=== PATIENT | male | born 1975 | race Caucasian/White ===

== ENCOUNTER 2017-08-15 19:58 | Emergency (ER) | payer OTHER ==
[~2017-08-15] VITALS: Ht 172.7 cm; Wt 83.9 kg
[2017-08-15 20:29] LABS: ABSOLUTE EOSINOPHILS 0.1 thou/uL (0.0-0.7); ABSOLUTE LYMPHOCYTES 1.9 thou/uL (0.8-5.3); ABSOLUTE MONOCYTES 0.5 thou/uL (0.0-1.2); ABSOLUTE NEUTROPHILS 2.9 thou/uL (1.6-8.1); BASOPHILS 0.4 %; EOSINOPHILS 2.5 %; HEMOGLOBIN 13.7 gm/dL (14.0-18.0); LYMPHOCYTES 34.7 %; MCH 33.9 pg (26.0-34.0); MCHC 34.3 g/dL (28.0-37.0); MCV 98.8 fL (80.0-100.0); MONOCYTES 8.6 %; MPV 7.4 fl. (7.2-11.1); NUCLEATED RBCS 0 /100WBC; PLATELET COUNT* 288 thou/uL (150-400); POLYS 53.8 %; RBC 4.05 mil/uL (4.50-6.00); RDW-CV 13.2 % (10.5-14.5); WBC 5.4 thou/uL (4.0-11.0)
[2017-08-15 20:38] LABS: ANION GAP 10 mmol/L (7-16); BUN 8 mg/dL (7-18); CHLORIDE 104 mmol/L (98-107); CO2 25 mmol/L (21-32); CREATININE 0.9 mg/dL (0.6-1.3); GLUCOSE 120 mg/dL (70-99); POTASSIUM 3.4 mmol/L (3.5-5.1); SODIUM 139 mmol/L (136-145)
[2017-08-15 20:41] LABS: APTT 28.2 Seconds (25.0-31.3)
[2017-08-15 20:54] LABS: ALKALINE PHOSPHATASE 87 U/L (46-116); CK-MB MASS < 0.5 ng/mL (<0.5-3.6); LIPASE 99 U/L (73-393); NT-PRO BRAIN NAT PEPTIDE 17 pg/mL (<300); SGOT 18 U/L (15-37); SGPT 22 U/L (30-65); TOTAL BILIRUBIN 0.5 mg/dL (<0.1-1.0); TOTAL PROTEIN 7.6 g/dL (6.4-8.2); TROPONIN-I LEVEL <0.06 ng/mL (<0.06)
[2017-08-15 21:09] VITALS: BP 116/81
--- NOTE | 2017-08-17 11:12 | EKG ---
[place] [address] ELECTROCARDIOGRAM REPORT Name: ROBERT SANCHEZ [id number] Admission: 08/15/17 Attend Phys: Discharge: 08/15/17 Date of : 73 Report #: [id number] THIS REPORT FOR: //name// [facility] ED Test Date: 2017-08-15 Test Time: 20:06:26 Pat Name: ROBERT SANCHEZ Department: Room: Gender: M [employer]: [place] : 1975 Requested By: Frederic Venegas Order Number: [id number] MD: Mukesh Kirkland Measurements Intervals [place] Rate: 87 P: CO: QRS: -42 QRSD: 90 T: 29 QT: 354 QTc: 426 Interpretive Statements sinus rhythm Left axis deviation Artifact in lead(s) I,II,aVR,V1 No previous ECG available for comparison Electronically Signed On 08-17-2017 11:12:29 CDT by Mukesh Kirkland [email or web address] <ELECTRONICALLY SIGNED> By: Mukesh Kirkland MD, [facility] 08/17/17 1112 05 05 Mukesh Kirkland MD, FACC /EPI
== END 2017-08-15 21:14 | disposition home or self-care (01) ==
LOC: M.ERS 19:58
PROVIDERS: Family Medicine
DX: R07.89 Other chest pain (principal)